=== PATIENT | male | born 1940 | race Caucasian/White ===

== ENCOUNTER → 2016-07-13 | Outpatient (CLI) | payer MEDICARE, BC ==
[2016-07-13 11:59] LABS: CALCIUM 8.6 mg/dL (8.5-10.1); CREATININE 0.9 mg/dL (0.7-1.3); POTASSIUM 3.4 mmol/L (3.5-5.1)
== END | disposition home or self-care (01) ==
LOC: LAB 11:19
PROVIDERS: ATTEND Nurse Practitioner
DX: I10 Essential (primary) hypertension (principal)
CPT/HCPCS: 36415; 80048

== ENCOUNTER → 2017-01-31 | Outpatient (CLI) | payer MEDICARE, BC ==
[2017-01-31 11:05] LABS: CALCIUM 8.7 mg/dL (8.5-10.1); CREATININE 0.9 mg/dL (0.7-1.3); GFR 81.8; POTASSIUM 3.2 mmol/L (3.5-5.1)
== END | disposition home or self-care (01) ==
LOC: LAB 10:18
PROVIDERS: ATTEND Nurse Practitioner
DX: I10 Essential (primary) hypertension (principal)
CPT/HCPCS: 36415; 80048

== ENCOUNTER → 2017-02-08 | Outpatient (CLI) | payer MEDICARE, BC ==
[2017-02-08 10:18] LABS: CALCIUM 8.6 mg/dL (8.5-10.1); CREATININE 0.8 mg/dL (0.7-1.3); GFR 93.7; POTASSIUM 3.8 mmol/L (3.5-5.1)
== END | disposition home or self-care (01) ==
LOC: LAB 09:48
PROVIDERS: ATTEND Nurse Practitioner
DX: E87.6 Hypokalemia (principal)
CPT/HCPCS: 36415; 80048

== ENCOUNTER → 2017-11-15 | Outpatient (CLI) | payer MEDICARE, BC ==
[2017-11-15 10:51] LABS: ALBUMIN 3.3 g/dL (3.4-5.0); ALBUMIN/GLOBULIN RATIO 0.9 (1.0-1.7); CALCIUM 8.7 mg/dL (8.5-10.1); GFR 72.3; POTASSIUM 4.2 mmol/L (3.5-5.1); TOTAL BILIRUBIN 0.5 mg/dL (0.2-1.0); TOTAL PROTEIN 6.9 g/dL (6.4-8.2)
== END | disposition home or self-care (01) ==
LOC: LAB 09:55
PROVIDERS: ATTEND Nurse Practitioner
DX: E78.5 Hyperlipidemia, unspecified (principal); I10 Essential (primary) hypertension; E78.00 Pure hypercholesterolemia, unspecified; J44.9 Chronic obstructive pulmonary disease, unspecified; E87.6 Hypokalemia
CPT/HCPCS: 36415; 80053; 80061

== ENCOUNTER → 2017-12-20 | Outpatient (CLI) | payer MEDICARE, BC ==
[~2017-12-20] MED LIST: IOHEXOL 300 MG/ML 75 ML VIAL. IV ONE
--- NOTE | 2017-12-20 16:54 | RAD ---
Chest CTA History: Shortness of breath Technique: After bolus of intravenous contrast, CT imaging was performed of the chest. Multiplanar reconstruction images to include MIP reconstruction images are submitted. Exposure: One or more of the following individualized dose reduction techniques were utilized for this examination: 1. Automated exposure control 2. Adjustment of the mA and/or kV according to patient size 3. Use of iterative reconstruction technique. Contrast: 75 cc Omnipaque 300 Comparison: None Findings: [ ] There has been a median sternotomy. No pulmonary embolism is identified. Thoracic aortic caliber is within normal limits. No significantly enlarged nodes are identified of the chest. There could be cholelithiasis, gallbladder barely included. There are are clips in the left upper quadrant of the abdomen. There is no pleural or pericardial effusion or pneumothorax. There is no lobar consolidation. Major airways are patent. There is 0.6 cm right upper lobe nodule near apex axial image 20 series 5, also mild somewhat nodular density of the right upper lobe axial image 38. There is small about 0.4 cm left upper lobe nodule best seen axial image 50. There is a tiny 0.3 cm left upper lobe nodule axial image 60 although fairly dense. There is small focus of somewhat infiltrative density of the lingula axial image 119 about 0.8 cm. There is multilevel thoracic ankylosis. Impression: 1. No pulmonary embolism is identified. 2. There are small foci of nodularity as stated, also somewhat nodular appearing infiltrate or nodule of the lingula for which 3 month follow-up exam advised as per revised Fleischner guidelines. 3. There may be cholelithiasis. Electronically signed by: Robert Clements MD (12/20/2017 4:51 PM) [id number]
== END | disposition home or self-care (01) ==
LOC: CT 12:56
PROVIDERS: ATTEND Nurse Practitioner Family
DX: M43.24 Fusion of spine, thoracic region (principal); I10 Essential (primary) hypertension; E78.00 Pure hypercholesterolemia, unspecified; J44.9 Chronic obstructive pulmonary disease, unspecified
CPT/HCPCS: 71275; Q9967

== ENCOUNTER → 2018-03-16 | Outpatient (CLI) | payer MEDICARE, BC ==
--- NOTE | 2018-03-16 16:24 | RAD ---
PQRS Compliance Statement: One or more of the following individualized dose reduction techniques were utilized for this examination: 1. Automated exposure control 2. Adjustment of the mA and/or kV according to patient size 3. Use of iterative reconstruction technique CT HEAD WITHOUT CONTRAST History: FALL TODAY HITTING HEAD, THROBBING HEADACHE. Comparison: None. Technique: Axial images are obtained of the head from the skull base through the vertex without IV contrast. Findings: No mass-effect, midline shift, extra-axial fluid collection, hemorrhage, or obvious acute infarction is identified. Basilar cisterns are patent. The ventricles and sulci are prominent, consistent with age-related cerebral atrophy. There is periventricular white matter hypoattenuation. This is a nonspecific finding but is commonly due to chronic small vessel ischemic disease. There are old infarcts at the right vertex and in the left parietal-occipital lobe. Bone windows demonstrate no acute calvarial abnormality. The visualized paranasal sinuses are clear. Mastoid air cells are well aerated. IMPRESSION: 1. No acute intracranial abnormality. 2. 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 Electronically signed by: Víctor Workman MD (03/16/2018 4:20 PM) [id number]
--- NOTE | 2018-03-16 16:57 | RAD ---
EXAM: Left ribs, 3 views. HISTORY: Fall. COMPARISON: None. FINDINGS: 3 views of the left ribs are obtained. No acute rib fracture is seen. There is evidence of prior CABG. There is cervical spinal fusion instrumentation. There is degenerative change involving the spine and left shoulder. IMPRESSION: No acute osseous finding. Electronically signed by: Samantha Hawk MD (03/16/2018 4:53 PM) [facility]
== END | disposition home or self-care (01) ==
LOC: CT 15:55
PROVIDERS: ATTEND Family Medicine
DX: S06.0X0A Concussion without loss of consciousness, initial encounter (principal); G31.89 Other specified degenerative diseases of nervous system; R07.81 Pleurodynia; M47.892 Other spondylosis, cervical region; M19.012 Primary osteoarthritis, left shoulder; W10.8XXA Fall (on) (from) other stairs and steps, initial encounter; Y93.89 Activity, other specified; Y92.89 Other specified places as the place of occurrence of the external cause; Y99.8 Other external cause status
CPT/HCPCS: 70450; 71100

== ENCOUNTER → 2018-03-23 | Outpatient (CLI) | payer MEDICARE, BC ==
--- NOTE | 2018-03-23 16:39 | RAD ---
Clinical indications: Stroke. History of infarcts of the left parietal and occipital lobe and right vertex. Duplex sonography of the cervical portion of both carotid arteries was performed including color flow imaging and spectral waveform analysis with flow velocity measurement and richardson scale evaluation. Right side: Peak systolic flow velocity of the distal CCA is 56 cm/sec. Peak systolic flow velocity of the ICA is 88 cm/sec. Thus, the ICA/CCA ratio is 1.6. Peak end diastolic flow velocity of the ICA is 20 cm/sec. The peak systolic velocity of the ECA is 98 cm/sec. Left side: Peak systolic flow velocity of the distal CCA is 67 cm/sec. Peak systolic flow velocity of the ICA is 141 cm/sec. Thus, the ICA/CCA ratio is 2.1. Peak end diastolic flow velocity of the ICA is 37 cm/sec. Peak systolic flow velocity of the ECA is 124 cm/sec. There is some mild soft plaque information within the right ICA which is less than 50%. There is calcified and soft plaque within the left carotid bulb and left ICA. There is a 50-69% stenosis within the left ICA.. Antegrade vertebral flow is seen bilaterally. The measurements were made using the NASCET criteria. Impression: There is a 50-69% stenosis within the left ICA. Electronically signed by: Jai Lizarraga MD (03/23/2018 4:35 PM) [place] [id number]
== END | disposition home or self-care (01) ==
LOC: US 12:07
PROVIDERS: ATTEND Physician Assistant
DX: I65.23 Occlusion and stenosis of bilateral carotid arteries (principal)
CPT/HCPCS: 93880

== ENCOUNTER → 2018-03-24 | Outpatient (CLI) | payer MEDICARE, BC ==
[~2018-03-24] MED LIST changes: +CONTRAST GIVEN MC PRN
[2018-03-24 14:43] LABS: CREATININE 0.9 mg/dL (0.7-1.3); GFR 81.6
--- NOTE | 2018-03-24 17:10 | RAD ---
CTA of the neck with contrast 03/24/2018 Clinical history: History of CVAs. Left ICA stenosis seen on carotid ultrasound. Technique: After the intravenous administration 75 cc of Isovue-370, contiguous, 0.625 mm axial sections were obtained through the upper chest and neck. Multiplanar 3-D MIP and volume rendered 3-D reconstructed images were obtained. One or more of the following individualized dose reduction techniques were utilized for this study: 1. Automated exposure control. 2. Adjustment of the mA and/or kV according to patient size. 3. Use of iterative reconstruction technique. Findings: Comparison is made to patient's carotid ultrasound dated 03/23/2018. Scattered atherosclerotic plaque formation seen involving the thoracic aortic arch and its branches. The origins of the brachiocephalic, left common carotid and left subclavian arteries from the thoracic aortic arch are patent. The origin of the right common carotid artery and both vertebral arteries are patent. Mild to moderate atheromatous/atherosclerotic plaque formation is seen involving both carotid bifurcations and proximal internal carotid arteries, left greater than right. A 60 percent stenosis is seen involving the proximal right internal carotid artery 1 cm distal to its origin. This measures 7 mm in length. A 70 percent stenosis is seen involving the left internal carotid artery at its origin. This measures 2 cm in length. Ulcerated plaque, measuring 5 mm in size, is seen within the stenosis. The right vertebral artery is dominant. The left vertebral artery is very small and is faintly opacified with contrast and appears to be intermittently occluded, particularly superiorly. Filling of the left posterior inferior cerebellar artery is seen via retrograde flow from the distal left vertebral artery. No stenosis of the right vertebral artery is seen. No acute soft tissue abnormality is seen within the neck. Degenerative changes are seen involving the uncovertebral and facet joints throughout the cervical disc spaces. The patient is post anterior fusion using an anterior plate, bone screws and bone graft material at C5-6. IMPRESSION: 1. Mild to moderate atheromatous/atherosclerotic plaque formation is seen involving both carotid bifurcations. A 60 percent stenosis is seen involving the proximal right internal carotid artery 1 cm distal to its origin. This measures 7 mm in length. A 70 percent stenosis is seen involving the left internal carotid artery at its origin. This measures 2 cm in length. Ulcerated plaque is seen in this region as outlined above. 2. The left vertebral artery is very small and appears to be intermittently occluded, particularly superiorly. Stenosis calculation for CTA are based on measurement of the distal internal carotid artery diameter in accordance with the NASCET methodology. Electronically signed by: Izaiah Hopson MD (03/24/2018 5:06 PM) [facility]
== END | disposition home or self-care (01) ==
LOC: CT 13:43
PROVIDERS: ATTEND Psychiatry & Neurology Neurology
DX: I65.23 Occlusion and stenosis of bilateral carotid arteries (principal); Z86.73 Personal history of transient ischemic attack (TIA), and cerebral infarction without residual deficits
CPT/HCPCS: 36415; 70498; 82565; Q9967

== ENCOUNTER → 2018-04-19 | Outpatient (CLI) | payer MEDICARE, BC ==
[2018-04-19 09:09] LABS: ALBUMIN 3.3 g/dL (3.4-5.0); ALBUMIN/GLOBULIN RATIO 0.9 (1.0-1.7); CALCIUM 8.6 mg/dL (8.5-10.1); CREATININE 0.9 mg/dL (0.7-1.3); GFR 81.6; POTASSIUM 4.1 mmol/L (3.5-5.1); TOTAL BILIRUBIN 0.4 mg/dL (0.2-1.0); TOTAL PROTEIN 6.9 g/dL (6.4-8.2)
== END | disposition home or self-care (01) ==
LOC: LAB 08:14
PROVIDERS: ATTEND Nurse Practitioner
DX: E78.5 Hyperlipidemia, unspecified (principal)
CPT/HCPCS: 36415; 80053; 80061

== ENCOUNTER 2018-04-26 11:02 | Observation (INO) | payer MEDICARE, BC ==
[~2018-04-26] VITALS: Ht 182.9 cm; Wt 89.4 kg
[2018-04-26] MEDS ORDERED: ACETAMINOPHEN 500 MG TABLET PO PRN (11:45)
[2018-04-26] MEDS ORDERED: IV NORMAL SALINE 1,000ML 1,000 ML IV SCH (11:45)
[2018-04-26 12:10] LABS: BASO % 0 % (0-3); EOS # 0.1 x10^3/uL (0.0-0.7); EOS % 1 % (0-3); HEMATOCRIT 42.8 % (39.0-53.0); HEMOGLOBIN 14.5 g/dL (13.0-17.5); LYMPH % 15 % (24-48); MEAN CORPUSCULAR HEMOGLOBIN 33 pg (25-35); MEAN CORPUSCULAR HGB CONC 34 g/dL (31-37); MEAN CORPUSCULAR VOLUME 96 fL (79-100); MONO # 1.1 x10^3/uL (0.0-1.1); MONO % 16 % (0-9); NEUT # 4.5 x10^3uL (1.8-7.7); NEUT % 67 % (31-73); PLATELET COUNT 213 x10^3/uL (140-400); RED BLOOD COUNT 4.44 x10^6/uL (4.30-5.70); RED CELL DISTRIBUTION WIDTH 13.8 % (11.5-14.5); WHITE BLOOD COUNT 6.7 x10^3/uL (4.0-11.0)
[2018-04-26 12:21] VITALS: BP 125/68
[2018-04-26 12:22] LABS: ALBUMIN 3.8 g/dL (3.4-5.0); ALBUMIN/GLOBULIN RATIO 0.9 (1.0-1.7); GFR 72.3; POTASSIUM 3.8 mmol/L (3.5-5.1); TOTAL BILIRUBIN 0.9 mg/dL (0.2-1.0)
[2018-04-26 12:28] LABS: INFLUENZA A PATIENT NEGATIVE (NEGATIVE); INFLUENZA B PATIENT NEGATIVE (NEGATIVE)
[2018-04-26] MEDS ORDERED: ASPI-630 PO (12:32)
[2018-04-26] MEDS ORDERED: ATOR40TA59 PO (12:32)
[2018-04-26] MEDS ORDERED: CETI10TA16 PO (12:32)
[2018-04-26] MEDS ORDERED: ALBU2.5V8 INH (12:32)
[2018-04-26] MEDS ORDERED: FLUT12AE IH (12:32)
[2018-04-26] MEDS ORDERED: AMLO10TA6 PO (12:32)
[2018-04-26] MEDS ORDERED: DULO30CA2 PO (12:32)
[2018-04-26] MEDS ORDERED: OLME40TA12 PO (12:32)
[2018-04-26] MEDS ORDERED: FERR325T14 PO (12:32)
[2018-04-26] MEDS ORDERED: ERGO500027 PO (12:32)
[2018-04-26] MEDS ORDERED: UBID50TA PO (12:32)
[2018-04-26] MEDS ORDERED: FLUT50DI IH (12:32)
[2018-04-26 12:41] LABS: BACTERIA,URINE MOD /HPF (0-FEW); BILIRUBIN,URINE NEG (NEG); CLARITY,URINE HAZY; COLOR,URINE YELLOW; GLUCOSE,URINE NEG (NEG); NITRITE,URINE NEG (NEG); RBC,URINE RARE /HPF (0-2); SQUAMOUS EPITHELIAL CELL,UR FEW /LPF; UROBILINOGEN,URINE 1 mg/dL (0.2 mg/dL)
[2018-04-26] MEDS ORDERED: NON FORMULARY ITEM (Fluticasone Propionate (Flovent 50MCG Diskus) 50 MCG) IH SCH (12:45)
[2018-04-26] MEDS ORDERED: ALBUTEROL SULFATE 2.5 MG/3 ML NEBU. INH PRN (12:45)
--- NOTE | 2018-04-26 15:18 | RAD ---
Chest, 2 views, 04/26/2018: HISTORY: Shortness of air, congestion, possible pneumonia Comparison is made to a study from 02/25/2016. There has been a previous median sternotomy. The heart size is normal. No pulmonary infiltrate is seen. There is no evidence of pleural fluid. Surgical clips are present in the upper abdomen on the left. IMPRESSION: No acute cardiopulmonary abnormality is detected. Electronically signed by: Facundo Harris MD (04/26/2018 3:14 PM) [facility]
[2018-04-26 15:27] VITALS: BP 132/68
[2018-04-26] MEDS ORDERED: BUDESONIDE 0.5 MG/2 ML NEBU NEB SCH (20:00)
[2018-04-27] MEDS ORDERED: ASPIRIN 81 MG TAB.CHEW PO SCH (08:00)
[2018-04-27] MEDS ORDERED: LOSARTAN 50 MG TABLET. PO SCH (09:00)
[2018-04-27] MEDS ORDERED: DULoxetine HCL 30 MG CAPSULE.DR PO SCH (09:00)
[2018-04-27] MEDS ORDERED: ATORVASTATIN CALCIUM 20 MG TABLET PO SCH (09:00)
[2018-04-27] MEDS ORDERED: CETIRIZINE HCL 10 MG TABLET PO SCH (09:00)
[2018-04-27] MEDS ORDERED: amLODIPine BESYLATE 10 MG TABLET PO SCH (09:00)
[2018-04-27] MEDS ORDERED: FERROUS SULFATE 325 MG TABLET. PO SCH (09:00)
[2018-05-03] MEDS ORDERED: CHOLECALCIFEROL (VITAMIN D3) 50,000 UNIT CAPSULE PO SCH (09:00)
== END 2018-04-26 17:15 | disposition home or self-care (01) ==
LOC: INTOOBSV 11:02 → 1 SOUTH 11:02
PROVIDERS: ADMIT Family Medicine; ATTEND Family Medicine
DX: R50.81 Fever presenting with conditions classified elsewhere (principal); R53.81 Other malaise; R53.83 Other fatigue; R42 Dizziness and giddiness; I10 Essential (primary) hypertension; E78.5 Hyperlipidemia, unspecified; I25.10 Atherosclerotic heart disease of native coronary artery without angina pectoris; Z95.5 Presence of coronary angioplasty implant and graft; Z96.651 Presence of right artificial knee joint; Z98.890 Other specified postprocedural states; Z88.8 Allergy status to other drugs, medicaments and biological substances; Z79.899 Other long term (current) drug therapy
CPT/HCPCS: 36415; 71046; 80053; 81001; 83605; 85025; 87040; 87086; 87804; 96360; 96361; G0378; G0379; J7030

== ENCOUNTER → 2018-09-15 | Outpatient (CLI) | payer MEDICARE, BC ==
[~2018-09-15] MED LIST changes: +ALBU2.5V8 INH; +AMLO10TA8 PO; +ASPI-630 PO; +ATOR40TA59 PO; +CETI10TA16 PO; -CONTRAST GIVEN MC PRN; +DULO30CA2 PO; +ERGO500027 PO; +FERR325T14 PO; +FLUT12AE IH; +FLUT50DI IH; -IOHEXOL 300 MG/ML 75 ML VIAL. IV ONE; +OLME40TA12 PO; +UBID50TA PO
[2018-09-15 09:34] LABS: ALBUMIN 3.4 g/dL (3.4-5.0); GFR 72.1; POTASSIUM 4.2 mmol/L (3.5-5.1); TOTAL BILIRUBIN 0.4 mg/dL (0.2-1.0); TOTAL PROTEIN 6.9 g/dL (6.4-8.2)
== END | disposition home or self-care (01) ==
LOC: LAB 08:37
PROVIDERS: ATTEND Nurse Practitioner
DX: E78.5 Hyperlipidemia, unspecified (principal)
CPT/HCPCS: 36415; 80053; 80061

== ENCOUNTER → 2018-09-27 | Outpatient (CLI) | payer MEDICARE, BC ==
--- NOTE | 2018-09-27 14:22 | RAD ---
CT of the chest without contrast, 09/27/2018: HISTORY: Cough Noncontrast scans were obtained as requested and compared to a study from 12/20/2017. There are mild unchanged apical opacities, right greater than left compatible with scarring. Bibasilar linear and faint groundglass opacities are also similar to those seen on the previous study and suggest scarring. No enlarging pulmonary densities or dense consolidation is seen. There is no evidence of pleural fluid. There has been a previous median sternotomy. There is calcific plaquing of the aorta and its branches with moderate coronary artery calcifications. No mediastinal adenopathy is seen. There is a suggestion of a small hiatal hernia. There is bony ankylosis throughout the thoracic spine. Surgical implants are evident in the lower cervical region. IMPRESSION: 1. Streaky and faint groundglass opacities in both lungs are similar to those seen on the prior exam, most compatible scarring. 2. Moderate coronary artery disease. 3. Small hiatal hernia. PQRS Compliance Statement: One or more of the following individualized dose reduction techniques were utilized for this examination: 1. Automated exposure control 2. Adjustment of the mA and/or kV according to patient size 3. Use of iterative reconstruction technique Electronically signed by: Facundo Harris MD (09/27/2018 2:19 PM) [facility]
== END | disposition home or self-care (01) ==
LOC: CT 12:54
PROVIDERS: ATTEND Nurse Practitioner Family
DX: K44.9 Diaphragmatic hernia without obstruction or gangrene (principal); I25.10 Atherosclerotic heart disease of native coronary artery without angina pectoris; I70.0 Atherosclerosis of aorta; M43.24 Fusion of spine, thoracic region; R91.8 Other nonspecific abnormal finding of lung field
CPT/HCPCS: 71250

== ENCOUNTER → 2019-10-16 | Outpatient (CLI) | payer MEDICARE, BC ==
[~2019-10-16] MED LIST changes: +IOHEXOL 350 MG/ML 100 ML VIAL. IV ONE
--- NOTE | 2019-10-16 09:44 | RAD ---
Examination: CT angiography chest HISTORY: History of elevated d-dimer, shortness of breath, cough COMPARISON: CT chest from 09/27/2018 TECHNIQUE: Axial CT angiographic images of chest were performed with IV contrast. Coronal and sagittal reformats are performed. Exposure: One or more of the following individualized dose reduction techniques were utilized for this examination: 1. Automated exposure control 2. Adjustment of the mA and/or kV according to patient size 3. Use of iterative reconstruction technique FINDINGS: The visualized thyroid gland grossly appears unremarkable. Central airways are patent. Coronary artery calcifications identified. The caliber of the aorta grossly appears unremarkable. There is no evidence of filling defect identified in the main pulmonary arterial trunk and right and left main pulmonary arteries and the visualized lobar, segmental branches of the pulmonary arteries. Faint airspace opacities identified in the right apical lung with the tree-in-bud airspace opacities identified in the right upper lobe, bibasilar lungs in the left lingula likely infectious or inflammatory etiology. The liver, spleen, adrenals grossly appears unremarkable. Changes of DISH in the thoracic spine. IMPRESSION: 1. No evidence of pulmonary embolism. 2. Faint airspace opacities identified in the right apical lung with tree-in-bud airspace opacities identified in the right upper lobe, bibasilar lungs and in the left lingula likely infectious or inflammatory etiology. Follow-up to resolution. Electronically signed by: Matt Baeza MD (10/16/2019 9:41 AM) [id number]
== END | disposition home or self-care (01) ==
LOC: CT 08:49
PROVIDERS: ATTEND Family Medicine
DX: R06.02 Shortness of breath (principal); I25.10 Atherosclerotic heart disease of native coronary artery without angina pectoris; M48.14 Ankylosing hyperostosis [Forestier], thoracic region
CPT/HCPCS: 71275; Q9967

== ENCOUNTER → 2019-11-02 | Outpatient (CLI) | payer MEDICARE, BC ==
[~2019-11-02] MED LIST changes: -IOHEXOL 350 MG/ML 100 ML VIAL. IV ONE
--- NOTE | 2019-11-02 13:13 | RAD ---
CT Abdomen and Pelvis without contrast History: Nausea, abdominal pain Technique: Noncontrast CT imaging was performed of the abdomen and pelvis. Multiplanar images are reviewed. Exposure: One or more of the following individualized dose reduction techniques were utilized for this examination: 1. Automated exposure control 2. Adjustment of the mA and/or kV according to patient size 3. Use of iterative reconstruction technique. Comparison: August 03, 2013 Findings: It should be noted the entirety of the left hemidiaphragm and superior aspect of the spleen were not included on this exam. No urolithiasis or hydronephrosis is identified. Incidental note is made of retroaortic left renal vein.There is nonspecific circumferential mild prominence of the urinary bladder okeefe. Prostate gland slightly indents the base of urinary bladder. Accurate evaluation of abdominal visceral organs is limited without intravenous contrast. There is no obvious abnormality of the spleen, liver, or pancreas. There are again a few small accessory spleens. There is cholelithiasis. There is no adrenal nodularity. Accurate evaluation of bowel is limited without oral contrast. There are again clips in the low upper quadrant. There is no significant free air, free fluid, bowel dilatation. There is variable retained stool in the colon. There is no significant localized inflammatory type change about the bowel. Variable mild wall thickening of sigmoid colon and rectum is not excluded. Appendix is not confidently identified if still present. There is again some fat in the inguinal canals bilaterally, no bowel. There is scattered plaque of the abdominal aorta and iliac arteries. There is at least moderate narrowing of the proximal celiac artery by calcified plaque. There is multilevel thoracolumbar spondylosis. There is osteoarthritic change of the hips bilaterally. There are some bilateral inguinal nodes which are unchanged, largest on the right about 1 cm short axis dimension. Impression: 1. There is variable retained stool in the colon. Mild wall thickening of the sigmoid colon and rectum is difficult to exclude as could be seen with mild proctocolitis although there is no adjacent inflammatory change. Appendix is not clearly identified if still present. 2. There is cholelithiasis. 3. There is appearance of mild prominence of the urinary bladder okeefe, could be due to chronic outlet obstruction or incomplete distention unless clinical suspicion for cystitis. Electronically signed by: Robert Clements MD (11/02/2019 1:10 PM) [place] [id number]
[2019-11-02 13:15] LABS: BASO % 0 % (0-3); EOS # 0.1 x10^3/uL (0.0-0.7); EOS % 2 % (0-3); HEMATOCRIT 44.1 % (39.0-53.0); HEMOGLOBIN 14.9 g/dL (13.0-17.5); LYMPH # 1.2 x10^3/uL (1.0-4.8); LYMPH % 18 % (24-48); MEAN CORPUSCULAR HEMOGLOBIN 34 pg (25-35); MEAN CORPUSCULAR HGB CONC 34 g/dL (31-37); MEAN CORPUSCULAR VOLUME 99 fL (79-100); MONO # 0.8 x10^3/uL (0.0-1.1); MONO % 11 % (0-9); NEUT # 4.8 x10^3uL (1.8-7.7); NEUT % 69 % (31-73); PLATELET COUNT 223 x10^3/uL (140-400); RED BLOOD COUNT 4.44 x10^6/uL (4.30-5.70); RED CELL DISTRIBUTION WIDTH 12.9 % (11.5-14.5); WHITE BLOOD COUNT 6.9 x10^3/uL (4.0-11.0)
[2019-11-02 13:23] LABS: ALBUMIN 3.8 g/dL (3.4-5.0); CALCIUM 9.5 mg/dL (8.5-10.1); CREATININE 1.6 mg/dL (0.7-1.3); GFR 41.8; POTASSIUM 4.2 mmol/L (3.5-5.1); TOTAL BILIRUBIN 0.6 mg/dL (0.2-1.0); TOTAL PROTEIN 7.7 g/dL (6.4-8.2)
== END | disposition home or self-care (01) ==
LOC: LAB 11:40
PROVIDERS: ATTEND Family Medicine
DX: K80.20 Calculus of gallbladder without cholecystitis without obstruction (principal); M16.0 Bilateral primary osteoarthritis of hip; M47.815 Spondylosis without myelopathy or radiculopathy, thoracolumbar region; I70.0 Atherosclerosis of aorta
CPT/HCPCS: 36415; 74176; 80053; 83690; 85025

== ENCOUNTER → 2019-11-07 | Outpatient (CLI) | payer MEDICARE, BC ==
--- NOTE | 2019-11-07 11:10 | RAD ---
INDICATION : Reason: RUQ PAIN / Spl. Instructions: / History: COMPARISON: November 02, 2019 TECHNIQUE: Multiple ultrasound images obtained through the abdomen in grayscale and color. FINDINGS: Liver: Coarsened echotexture. Gallbladder: There is some echogenic material within the gallbladder. IVC: Not well seen secondary to overlying structures obscuring. Common Bile Duct: 8 mm Pancreas: Obscured by overlying structures Right Kidney: No hydronephrosis. Renal cortical thinning. IMPRESSION: * Small amount of echogenic material within the gallbladder which could be from small stones and sludge. There is also mild dilation of the common bile duct. * Mild heterogeneity of the liver. Electronically signed by: Alfredo Renteria MD (11/07/2019 11:07 AM) [id number]
== END ==
LOC: US 10:16
PROVIDERS: ATTEND Family Medicine
DX: K83.8 Other specified diseases of biliary tract (principal); K76.9 Liver disease, unspecified
CPT/HCPCS: 76705

== ENCOUNTER → 2019-11-15 | Outpatient (CLI) | payer MEDICARE, BC ==
--- NOTE | 2019-11-16 13:00 | RAD ---
PQRS Compliance Statement: One or more of the following individualized dose reduction techniques were utilized for this examination: 1. Automated exposure control 2. Adjustment of the mA and/or kV according to patient size 3. Use of iterative reconstruction technique CT CHEST WO CONTRAST Clinical Indication: Reason: ABNORMAL CT 09/2019 / Comparison: CT PE October 16, 2019. TECHNIQUE: Helical CT imaging of the chest is performed without IV contrast. Findings: The thyroid is symmetric. There are changes of CABG. Coronary artery disease. There is no adenopathy in the chest. Limited evaluation of the aleah without IV contrast. Tiny calcified left hilar and subcarinal lymph nodes. Mild ectasia of the ascending thoracic aorta. Cardiac size normal, no pericardial effusion. There is no pleural abnormality. The central airways are patent. Mild right apical scarring is stable. Previously seen tree-in-bud opacities have resolved. Mild scarring in the medial right lower lobe just above the hemidiaphragm is unchanged. There is a 4 mm noncalcified nodule in the lingula, not seen previously, image 74. There is a 3 mm nodule in the left upper lobe, image 35. Tiny subpleural nodule in the lateral left upper lobe is stable, image 29. Surgical clips left upper abdomen. Cholelithiasis. ACDF hardware, partially seen. Thoracic spine changes of DISH. IMPRESSION: 1. Previously seen tree-in-bud opacities have resolved. 2. There are 2 sub-6 mm nodules in the left lung, not previously seen. Consider CT chest follow-up in 12 months per Fleischner Society guidelines. 3. Cholelithiasis. Electronically signed by: Víctor Workman MD (11/16/2019 12:57 PM) [id number]
== END | disposition home or self-care (01) ==
LOC: CT 09:44
PROVIDERS: ATTEND Internal Medicine Critical Care Medicine
DX: I77.810 Thoracic aortic ectasia (principal); I25.10 Atherosclerotic heart disease of native coronary artery without angina pectoris; K80.20 Calculus of gallbladder without cholecystitis without obstruction; R93.89 Abnormal findings on diagnostic imaging of other specified body structures; R91.8 Other nonspecific abnormal finding of lung field; J98.4 Other disorders of lung; Z98.890 Other specified postprocedural states
CPT/HCPCS: 71250

== ENCOUNTER 2020-01-19 12:04 | Inpatient (IN) | payer MEDICARE, BC ==
[~2020-01-19] VITALS: Ht 182.9 cm; Wt 86.3 kg
[~2020-01-19 12:04] MED LIST changes: +AMLO-187 PO; -AMLO10TA8 PO
[2020-01-19] MEDS ORDERED: ASPIRIN CHEWABLE 81 MG TABLET. PO ONE (12:15)
[2020-01-19 12:27] LABS: BASO % 0 % (0-3); EOS # 0.1 x10^3/uL (0.0-0.7); EOS % 1 % (0-3); HEMATOCRIT 42.4 % (39.0-53.0); HEMOGLOBIN 14.2 g/dL (13.0-17.5); LYMPH # 1.3 x10^3/uL (1.0-4.8); LYMPH % 19 % (24-48); MEAN CORPUSCULAR HEMOGLOBIN 34 pg (25-35); MEAN CORPUSCULAR HGB CONC 34 g/dL (31-37); MEAN CORPUSCULAR VOLUME 101 fL (79-100); MONO # 0.8 x10^3/uL (0.0-1.1); MONO % 12 % (0-9); NEUT # 4.4 x10^3uL (1.8-7.7); NEUT % 68 % (31-73); PLATELET COUNT 227 x10^3/uL (140-400); RED CELL DISTRIBUTION WIDTH 13.4 % (11.5-14.5); WHITE BLOOD COUNT 6.5 x10^3/uL (4.0-11.0)
[2020-01-19 12:41] LABS: CALCIUM 8.8 mg/dL (8.5-10.1); GFR 32.3
--- NOTE | 2020-01-19 12:54 | EKG ---
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
--- NOTE | 2020-01-19 12:58 | RAD ---
CHEST PA LATERAL History: Reason: chest pain / Spl. Instructions: / History: Comparison: April 26, [address] November 15, 2019 Findings: Hyperinflation. No consolidation. No pleural effusion. No pneumothorax. Prior median sternotomy. Postop changes lower cervical spine. Impression: 1. No acute cardiopulmonary process. Electronically signed by: Jeffrey Jimenez DO (01/19/2020 12:55 PM) [id number]
--- NOTE | 2020-01-19 15:42 | PHYS DOC ---
Past History Past Medical History: High Cholesterol, Hypertension Past Surgical History: Coronary Bypass Surgery, Other Additional Past Surgical Histo: STENTS Alcohol Use: None Adult General Chief Complaint Chief Complaint: CHEST PAIN HPI HPI Patient is an 79-year-old male who presents to the emergency room with intermittent chest pain since Tuesday. He states that he was trying to catch a flight and had to run. [place] to his flight he started having chest pain and could not breathe. He collapsed at the airport and they had to come back for him and take him in a wheelchair. Since that time he has been having intermittent chest pressure and shortness of breath. He generally feels unwell. He denies any cough, fever, URI symptoms. He denies any abdominal pain. He has had a bypass previously and 2 stents placed. Review of Systems Review of Systems General: Denies fever, chills, sweats, fatigue Eyes: Denies drainage, blurred vision, eye redness HENT: Denies rhinorrhea, sore throat, earache Respiratory: Denies cough, wheezing, Reports shortness of breath Cardiac: Reports Chest pain. Denies palpitations, edema GI: Denies abdominal pain, Nausea, vomiting MSK: Denies back pain, neck pain Skin: Denies rash, jaundice Neuro: Denies headache, dizziness Psychiatric: Denies SI/HI Current Medications Current Medications Current Medications Medications (Trade) Dose Ordered Sig/Isadora Start Time Stop Time Status Last Admin Dose Admin Aspirin (Aspirin Chewable) 324 mg 1X ONCE 01/19/20 12:15 01/19/20 12:23 DC 01/19/20 12:15 324 MG Allergies Allergies Allergies Coded Allergies Type Severity Reaction Last Updated Verified No Known Drug Allergies 12/20/17 No Physical Exam Physical Exam General: Awake, alert, NAD. Well Nourished, well hydrated. Cooperative HEENT: Atraumatic, EOMI, PERRL, airway patent, moist oral mucosa Neck: Supple, trachea midline Respiratory: CTA bilaterally, normal effort, no wheezing/crackles CV: RRR, no murmur, cap refill <2 GI: Soft, nondistended, nontender, no masses MSK: No obvious deformities Skin: Warm, dry, intact Neuro: A&O x3, speech NL, sensory and motor grossly intact, no focal deficits Psych: Normal affect, normal mood, not suicidal or homicidal Current Patient Data Vital Signs Vital Signs Date Time Temp Pulse Resp B/P (MAP) Pulse Ox O2 Delivery O2 Flow Rate FiO2 01/19/20 12:16 97.3 112 20 112/63 (79) 96 Lab Results Laboratory Tests Test 01/19/20 12:09 White Blood Count 6.5 x10^3/uL (4.0-11.0) Red Blood Count 4.20 x10^6/uL (4.30-5.70) L Hemoglobin 14.2 g/dL (13.0-17.5) Hematocrit 42.4 % (39.0-53.0) Mean Corpuscular Volume 101 fL (79-100) H Mean Corpuscular Hemoglobin 34 pg (25-35) Mean Corpuscular Hemoglobin Concent 34 g/dL (31-37) Red Cell Distribution Width 13.4 % (11.5-14.5) Platelet Count 227 x10^3/uL (140-400) Neutrophils (%) (Auto) 68 % (31-73) Lymphocytes (%) (Auto) 19 % (24-48) L Monocytes (%) (Auto) 12 % (0-9) H Eosinophils (%) (Auto) 1 % (0-3) Basophils (%) (Auto) 0 % (0-3) Neutrophils # (Auto) 4.4 x10^3uL (1.8-7.7) Lymphocytes # (Auto) 1.3 x10^3/uL (1.0-4.8) Monocytes # (Auto) 0.8 x10^3/uL (0.0-1.1) Eosinophils # (Auto) 0.1 x10^3/uL (0.0-0.7) Basophils # (Auto) 0.0 x10^3/uL (0.0-0.2) Sodium Level 139 mmol/L (136-145) Potassium Level 4.0 mmol/L (3.5-5.1) Chloride Level 102 mmol/L (98-107) Carbon Dioxide Level 27 mmol/L (21-32) Anion Gap 10 (6-14) Blood Urea Nitrogen 29 mg/dL (8-26) H Creatinine 2.0 mg/dL (0.7-1.3) H Estimated GFR (Cockcroft-Gault) 32.3 Glucose Level 117 mg/dL (70-99) H Calcium Level 8.8 mg/dL (8.5-10.1) Troponin I Quantitative 0.039 ng/mL (0-0.055) YS-Hph-E-Type Natriuretic Peptide 661 pg/mL (0-449) H EKG EKG [] Radiology/Procedures Radiology/Procedures [] Course & Med Decision Making Course & Med Decision Making Pertinent Labs and Imaging studies reviewed. (See chart for details) Patient is a 79 year-old male who presents to the Emergency Room complaining of chest pain and shortness of breath. History is significant for exertional chest pain and collapse. At this time, given patient's risk factors and story there is concern for possible cardiac pathology. EKG was ordered. At this time there is no signs of STEMI, pericarditis, or unstable arrthymia on EKG. Patient has received aspirin today. CBC, BMP, troponin, CXR were ordered to evaluate for causes of chest pain including ACS, anemia, electrolyte abnormalities that can lead to arrhythmias, PTX, pneumonia, pneumomediastinum. Patient does not have any abdominal tenderness that would suggest pancreaititis or cholecystitis and does not need an abdominal work up at this time. Patient's HEART score is 7 placing the patient at high risk. Dragon Disclaimer Dragon Disclaimer This electronic medical record was generated, in whole or in part, using a voice recognition dictation system. Departure Departure: Impression: Primary Impression: Chest pain Additional Impression: Congestive heart failure Disposition: ADMITTED INPATIENT Condition: STABLE Referrals: MELANY JEFFERS MD (PCP) Problem Qualifiers TONI HOUGH MD Jan 19, 2020 15:42
--- NOTE | 2020-01-19 16:00 | NUR ---
The patient, FAROOQ ACOSTA, 79 y/o, M admitted by MELANY JEFFERS MD, with complaints of chest pain since monday 01/15. Pt states the pain is now resolved. Pt was given written information regarding hospital policies, unit procedures and contact persons. Valuables were checked and left in patients room per patients request. pt also wanted to keep money in his wallet along with ID. Pt resting in bed comfortably, Vital signs are stable at this time. Call placed to Dr. Jeffers to ask if he wanted a second troponin draw and fluids started, Dr. Jeffers agrees and orders placed in chart. Will CTM.
[2020-01-19 17:00] VITALS: BP 124/60
[2020-01-19] MEDS ORDERED: ATOR40TA59 PO (17:12)
[2020-01-19] MEDS ORDERED: LOSA100T14 PO (17:12)
[2020-01-19] MEDS ORDERED: GABA-585 PO (17:12)
[2020-01-19] MEDS ORDERED: OMEP20CA16 PO (17:15)
[2020-01-19] MEDS ORDERED: TRIA1CAP3 PO (17:15)
[2020-01-19] MEDS ORDERED: RANO500T2 PO (17:15)
[2020-01-19] MEDS ORDERED: ACETAMINOPHEN 500 MG TABLET PO PRN (18:00)
[2020-01-19] MEDS ORDERED: ZOLPIDEM 5 MG TABLET. PO PRN (18:00)
[2020-01-19] MEDS: IV 1/2 NORMAL SALINE 1,000 ML IV SCH (18:40)
[2020-01-19 20:00] VITALS: BP 104/52
[2020-01-19] MEDS ORDERED: ENOXAPARIN 40 MG/0.4 ML SYRINGE. SQ SCH (21:00)
[2020-01-19 23:00] VITALS: BP 106/66
[2020-01-20 03:04] VITALS: BP 93/61
--- NOTE | 2020-01-20 06:27 | NUR ---
Patient requested Ambien at bedtime, slept most of the night. Denies current chest pain, states he feels much better.
[2020-01-20 07:38] LABS: ALBUMIN 3.2 g/dL (3.4-5.0); ALBUMIN/GLOBULIN RATIO 0.9 (1.0-1.7); CALCIUM 8.7 mg/dL (8.5-10.1); CREATININE 1.6 mg/dL (0.7-1.3); GFR 41.8; POTASSIUM 4.1 mmol/L (3.5-5.1); TOTAL BILIRUBIN 0.8 mg/dL (0.2-1.0); TOTAL PROTEIN 6.7 g/dL (6.4-8.2)
[2020-01-20] MEDS: IV 1/2 NORMAL SALINE 1,000 ML IV SCH (08:08)
[2020-01-20 08:09] VITALS: BP 123/64
[2020-01-20] MEDS ORDERED: METOPROLOL SUCC 24HR ER 25 MG TAB.ER.24H. PO SCH (09:00)
[2020-01-20] MEDS ORDERED: METO50TA29 PO (10:36)
[2020-01-20 11:00] VITALS: BP 144/91
[2020-01-20] MEDS ORDERED: APIXABAN 5 MG TABLET. PO SCH (11:15)
--- NOTE | 2020-01-20 11:30 | NUR ---
REVIEWED PAPERWORK WITH PT AT BEDSIDE AND INSTRUCTED TO FOLLOW UP WITH CARDIOLOGY FOR THE AFIB DURING THE PATIENTS STAY. PT'S SIGNED PAPERWORK AND IV WAS DISCONTINUED BY LEONA RAMSEY. PT WALKED OUT TO FRONT DOOR.
--- NOTE | 2020-01-20 19:05 | DS ---
DATE OF DISCHARGE: 01/20/2020 HOSPITAL COURSE: An 79-year-old male who was admitted for chest pain. The patient came to the office and then through the Emergency Room. The patient apparently was running and therefore began to have substernal chest pain. The patient said it was relieved with rest and 1 nitro. The patient made excellent progress during the rest of his hospitalization. His creatinine was elevated to 2, came down to 1.6 and troponins were negative. The patient does have a Cardiology evaluation soon and here in the next few days the patient was stable without any chest discomfort. He was discharged home, followed up as an outpatient. Hemoglobin 1442. MCV slightly elevated. The patient's sodium and potassium 140 and 4.1, BUN and creatinine 27 and 1.6, down from 29 and 2. Troponins up to 0.023. BNP of 660, albumin 3.2. Sodium and potassium 140 and 4.1. Chest x-ray was unremarkable. 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 IMPRESSION: Angina with exertion, history of coronary artery disease, hypercholesterolemia. DISPOSITION: Discharged. DISCHARGE INSTRUCTIONS: Apparently he also had an episode of atrial fibrillation, although converted back in the sinus rhythm. 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 He was increased on his metoprolol 50 mg. His AFib was under control and last blood pressure was 140/90, respiratory rate 18, pulse 68 and afebrile, in sinus rhythm at 96% oxygen saturation. He will continue to be monitored carefully and make further evaluation tomorrow morning with his melting supervisor. MELANY JEFFERS MD DR: ADOLFO/frederic JOB#: [id number] / [id number]
[2020-01-21] MEDS ORDERED: METOPROLOL SUCC 24HR ER 50 MG TAB.ER.24H. PO SCH (09:00)
[2020-01-22 10:04] LABS: THYROID STIM HORMONE (TSH) 1.57 uIU/mL (0.358-3.740)
--- NOTE | 2020-01-29 12:17 | HP ---
ADMIT DATE: 01/19/2020 HISTORY OF PRESENT ILLNESS: An 79-year-old gentleman came in through the Emergency Room with chest pain. For the last day or so, the patient notes he could not catch a flight, as he was running down a pathway of an airport and began to have severe chest pain and collapsed at the airport, had to have a wheelchair bring him into the area there where he could be attended. He finally got on the plane and the patient was transferred out here to be seen in the Emergency Room. The patient denied nausea, vomiting, or diaphoresis. PAST MEDICAL HISTORY: Multiple medical problems including peripheral neuropathy, cardiac disease, cardiac surgery, triple bypass surgery 2000, coronary stent placement, hypertension, hyperlipidemia, stomach cancer, abdominal surgery for stomach cancer, gastroesophageal reflux cancer. IMMUNIZATIONS: Influenza vaccination up-to-date. ALLERGIES: No known allergies. FAMILY HISTORY: Noncontributory to this individual. HOME MEDICATIONS: Include Zyrtec, albuterol HFA inhaler, Ranexa, Lipitor 40 mg daily, metoprolol 50 mg, losartan 100, gabapentin 100 t.i.d., triamterene/hydrochlorothiazide, Prilosec, CoQ10. SOCIAL HISTORY: The patient denies smoking, alcohol or drug use and is full code. REVIEW OF SYSTEMS: The patient denies any recent weight loss, weight gain, change in bowel habits. Denies any melena, hematochezia or hematemesis. Neurologically intact except for what was noted. The patient was admitted to the hospital for further evaluation of his chest pain. PHYSICAL EXAMINATION: GENERAL: Pleasant white male. VITAL SIGNS: Blood pressure 112/63, respiratory rate 20, pulse 110, afebrile, 96% oxygen. HEENT: The patient's head was atraumatic, normocephalic. Eyes: PERRLA without jaundice. The mouth and throat were normal. NECK: Supple. ____ thyromegaly. LUNGS: The patient's lungs were diminished throughout, but basically clear. CARDIOVASCULAR: Regular sinus rhythm, S1, S2, without murmur, rub, thrill, or extra heart sounds. ABDOMEN: Soft, nontender, no rebound or guarding. Positive bowel sounds, no hepatosplenomegaly was noted. EXTREMITIES: No clubbing, cyanosis, nor edema. NEUROLOGIC: The patient was alert and oriented x 3. Speech fluent, spontaneous, appropriate. Cranial nerves 2-12 are grossly intact. LABORATORY DATA: The patient's labs: White count 6, hemoglobin 14 and 42. Chemistry: 140, 4.1, 27, 1.6. Cardiac enzymes so far have been negative. Lipids cholesterol 135, LDL 53, HDL 57. TSH normal. Albumin of 3.2. IMPRESSION: Chest pain, syncope with collapse, history of coronary artery disease and atherosclerosis, chronic kidney disease stage 3, moderate protein malnutrition. PLAN: The patient continued to be monitored carefully, make further evaluation on him, rule out MT protocol, Cardiology consultation. MELANY JEFFERS MD DR: ADOLFO/frederic JOB#: [id number] / [id number]
== END 2020-01-20 11:30 | disposition home or self-care (01) | DRG 302 ==
LOC: ER 12:04 → ICU 14:45
PROVIDERS: ADMIT Family Medicine; ATTEND Family Medicine
DX: I25.119 Atherosclerotic heart disease of native coronary artery with unspecified angina pectoris (principal); N17.0 Acute kidney failure with tubular necrosis; I13.0 Hypertensive heart and chronic kidney disease with heart failure and stage 1 through stage 4 chronic kidney disease, or unspecified chronic kidney disease; E44.0 Moderate protein-calorie malnutrition; I48.91 Unspecified atrial fibrillation; E78.00 Pure hypercholesterolemia, unspecified; Z95.1 Presence of aortocoronary bypass graft; Z79.899 Other long term (current) drug therapy; Z79.01 Long term (current) use of anticoagulants; E78.5 Hyperlipidemia, unspecified; I25.2 Old myocardial infarction; I50.9 Heart failure, unspecified; N18.30 Chronic kidney disease, stage 3 unspecified; Z85.028 Personal history of other malignant neoplasm of stomach; Z95.5 Presence of coronary angioplasty implant and graft; K21.9 Gastro-esophageal reflux disease without esophagitis; Z23 Encounter for immunization; G62.9 Polyneuropathy, unspecified; Z68.25 Body mass index [BMI] 25.0-25.9, adult; R55 Syncope and collapse
CPT/HCPCS: 36415; 71046; 80048; 80053; 80061; 83735; 83880; 84443; 84484; 85025; 85379; 93005; J1650; J7030; 99285-25